=== PATIENT | female | born 1975 | race Caucasian/White ===

== ENCOUNTER → 2019-09-14 | Outpatient (CLI) | payer MEDICARE | LOC: COL.RAD 10:50 | DX: Z13.6 Encounter for screening for cardiovascular disorders (principal); K59.00 Constipation, unspecified; D50.9 Iron deficiency anemia, unspecified; Z98.1 Arthrodesis status | CPT/HCPCS: Q9967 ==

== ENCOUNTER 2019-09-28 05:52 | Day surgery (SDC) | payer MEDICARE ==
[~2019-09-28] VITALS: Ht 170.2 cm; Wt 58.2 kg
[2019-09-28] VITALS (7 sets, daily range): BP systolic 93–130; BP diastolic 59–78; PULSE 58–68; TEMP 97.2–97.9
[2019-09-28] MEDS ORDERED: ZOLOFT 100MG100 MG PO (06:20)
[2019-09-28] MEDS ORDERED: NEXIUM 20MG20 MG PO (06:20)
--- NOTE | 2019-09-28 07:50 | NUR ---
Pt arrived back to room post procedure via cart with Jossy BOWEN. Received report from JESSI Real. Pt ambulated to chair easily with touch assist. Pt sleepy but arouses easily. VSS and WNL. Pt denies nausea or pain at this time. Pt resting comfortably in chair with call light within reach.
--- NOTE | 2019-09-28 08:00 | NUR ---
Dr. Hooks at bedside reviewing procedure with patient.
--- NOTE | 2019-09-28 08:00 | NUR ---
Pt still resting in chair dozing. VSS and WNL. Water brought per pt's request. Call light within reach.
--- NOTE | 2019-09-28 08:15 | NUR ---
Pt sitting comfortably in chair with VSS and WNL. Pt seems to be waking up easier and eating pudding and drinking water without c/o nausea or pain.
--- NOTE | 2019-09-28 08:30 | NUR ---
Pt sitting comfortably in chair. Finished pudding and water without c/o of nausea or pain. VSS and WNL. Call light within reach. business services coordinator working on ride home for patient.
--- NOTE | 2019-09-28 08:45 | NUR ---
Pt sitting comfortably bed awake, alert, and oriented. Pt meets criteria for discharge and states that she feels comfortable with going home. surgical services director at bedside assisting with finding a ride home for patient (pt's ride cancelled and pt has no other family or friends). IV DC'ed, call light within reach, VSS. Reviewed discharge information with pt, and she expressed understanding and had no further concerns/questions.
--- NOTE | 2019-09-28 09:32 | NUR ---
custom shop worker in pt's room coordinating pt's ride home. Pt awake, oriented and stable.
--- NOTE | 2019-09-28 11:48 | NUR ---
It Applications Analyst was consulted for patient who reports she needs a ride back to her home in [place]. Patient drove to [facility] today for her procedure and was under the impression she could drive home after six hours. RN advised that there was a miscommunication and although patient was advised she could drive herself home after six hours, policy requires twelve hours before a patient can drive self home. Patient states she is from [place] and has only been in [place] about a year. Patient reports she has no family and no friends locally. Patient states she has no one who could give her a ride home or give her a ride back tomorrow to pickling grader her car. Patient reports she has disability income and cannot afford a taxi ride back to [place]. SW completed taxi voucher for patient and scheduled transportation for [employer] to take patient home to [place]. SW assisted patient in setting up transportation with the [employer] for tomorrow to get back to [facility] so she can pickling grader her vehicle and drive home. Patient reports she can afford bus fare for tomorrow's transportation. NIELS provided patient written instructions and also reviewed pickling grader times, routes, and fixed route stops for tomorrow's transportation. SW provided patient phone number to [employer] incase there are issues tomorrow. No additional concerns at this time.
== END 2019-09-28 09:52 | disposition home or self-care (01) ==
LOC: SDCO 05:52
DX: D50.9 Iron deficiency anemia, unspecified (principal); K59.00 Constipation, unspecified; K62.89 Other specified diseases of anus and rectum; K21.9 Gastro-esophageal reflux disease without esophagitis
CPT/HCPCS: J2250; J3010; J7030

== ENCOUNTER 2020-06-03 16:02 | Outpatient (CLI) | payer MEDICARE, MEDICAID ==
[~2020-06-03] VITALS: Ht 170.2 cm; Wt 57.2 kg
[~2020-06-03 16:02] MED LIST: NEXIUM 20MG20 MG PO; ZOLOFT 100MG100 MG PO
[2020-06-03 16:54] VITALS: BP 95/54; PULSE 57; TEMP 98.8
== END 2020-06-03 18:57 | disposition home or self-care (01) ==
LOC: EUO 16:02
DX: D50.9 Iron deficiency anemia, unspecified (principal)
CPT/HCPCS: J2916

== ENCOUNTER → 2020-06-17 | Outpatient (CLI) | payer MEDICARE | LOC: MC.RAD 09:01 | DX: Z12.31 Encounter for screening mammogram for malignant neoplasm of breast (principal) ==